=== PATIENT | female | born 1960 | race Caucasian/White ===

== ENCOUNTER → 2021-08-16 | Outpatient (CLI) | payer BC, OTHER ==
[~2021-08-16] MED LIST: ADRIAMYCIN; CELE200; CYTOXIN; DIPH50; GABA300; LORA.5 PO; MELA3; ONDA8 PO; OXYC5 PO; PROM25 PO; Valium5 MG PO; ZOLEDRONIC5 MG/100 M; [UNRECOGNIZED DRUG - OTHER]
== END | disposition home or self-care (01) ==
LOC: LAB 09:22 → PLD 09:22 → LAB SHORT 09:22
DX: D48.5 Neoplasm of uncertain behavior of skin (principal)
CPT/HCPCS: 88305

== ENCOUNTER → 2021-08-17 | Outpatient (CLI) | payer BC, OTHER ==
[2021-08-17 13:55] LABS: Source, Urine Clean Catch
[2021-08-17 15:01] LABS: Bacteria Few /hpf; Squamous Epithelial Cells Few /hpf (Few); White Blood Cells, Urine 0-2 /hpf (0-5)
[2021-08-18 11:23] LABS: Candida species (DNA Probe) Negative (NEGATIVE); G. vaginalis (DNA Probe) Negative (NEGATIVE); T. vaginalis (DNA Probe) Negative (NEGATIVE)
== END | disposition home or self-care (01) ==
LOC: LAB 11:42 → LAB SHORT 11:42
PROVIDERS: Family Medicine
DX: N95.0 Postmenopausal bleeding (principal)
CPT/HCPCS: 81015; 87480; 87510; 87660

== ENCOUNTER → 2021-09-13 | Outpatient (CLI) | payer BC, OTHER | END | disposition home or self-care (01) | LOC: LAB 17:09 → LAB SHORT 17:09 | DX: R31.9 Hematuria, unspecified (principal) | CPT/HCPCS: 88108 ==

== ENCOUNTER → 2021-10-12 | Outpatient (CLI) | payer BC ==
[2021-10-12 14:18] LABS: BASOPHILS ABSOLUTE AUTO 0.05 K/mm3 (0.00-0.23); BASOPHILS PERCENT AUTO 1 % (0-2); EOSINOPHILS ABSOLUTE AUTO 0.03 K/mm3 (0.00-0.68); EOSINOPHILS PERCENT AUTO 1 % (0-6); Hematocrit 36.6 % (33.0-51.0); Hemoglobin 12.4 g/dL (11.5-16.0); IMMATURE GRAN ABSOLUTE AUTO 0.02 K/mm3 (0.00-0.10); IMMATURE GRAN PERCENT AUTO 0 % (0-1); LYMPHOCYTES ABSOLUTE AUTO 0.84 K/mm3 (0.84-5.20); LYMPHOCYTES PERCENT AUTO 16 % (21-46); MONOCYTES ABSOLUTE AUTO 0.38 K/mm3 (0.16-1.47); MONOCYTES PERCENT AUTO 7 % (4-13); Mean Corpuscular HGB 30.5 pg (26.0-34.0); Mean Corpuscular HGB Conc 33.9 g/dL (31.5-36.5); Mean Corpuscular Volume 90 fL (80-100); Mean Platelet Volume 9.4 fL (9.1-12.4); NEUTROPHILS ABSOLUTE AUTO 3.83 K/mm3 (1.96-9.15); NEUTROPHILS PERCENT AUTO 74 % (41-73); Platelet Count 213 K/mm3 (150-400); RDW Coefficient Variation 12.7 % (11.7-14.2); RDW Standard Deviation 42.2 fL (35.1-46.3); Red Blood Cell Count 4.06 M/mm3 (3.80-5.20); White Blood Cell Count 5.15 K/mm3 (4.00-11.30)
[2021-10-12 15:17] LABS: Alanine Aminotransfer (ALT/SGP 22 U/L (12-78); Albumin, Blood 3.9 g/dL (3.4-5.0); Albumin/Globulin Ratio 1.3 (0.8-1.8); Alk Phos 48 U/L (50-136); Anion Gap 7 mmol/L (6-16); Aspartate Aminotrans (AST/SGOT 20 U/L (12-37); Bilirubin, Total 0.6 mg/dL (0.1-1.0); Blood Urea Nitrogen 23 mg/dL (8-24); CHOL/HDL RATIO 1.9; CO2, Blood 26 mmol/L (21-32); Calcium, Blood 9.3 mg/dL (8.5-10.1); Chloride, Blood 104 mmol/L (98-108); Cholesterol 183 mg/dL (50-200); Free Thyroxine 0.92 ng/dL (0.70-1.60); Globulin, Blood 3.1 g/dL (2.2-4.0); Glucose, Blood 92 mg/dL (70-99); HDL Cholesterol 97 mg/dL (>39); LDL/HDL RATIO 0.8; Low Density Lipoprotein Chol 77 mg/dL (0-110); Potassium, Blood 3.8 mmol/L (3.5-5.5); Sodium, Blood 137 mmol/L (136-145); Triglycerides 46 mg/dL (30-160); Very Low Density Lipoprot Chol 9 mg/dL (6-32)
[2021-10-12 15:20] LABS: Glomerular Filtration Rate 98 (60-); Triiodothyronine, Free 2.41 pg/mL (2.18-3.98)
== END | disposition home or self-care (01) ==
LOC: LAB SHORT 13:34 → LAB 13:34
PROVIDERS: Family Medicine
DX: Z00.00 Encounter for general adult medical examination without abnormal findings (principal); R79.89 Other specified abnormal findings of blood chemistry; R53.83 Other fatigue
CPT/HCPCS: 36415; 80053; 80061; 84439; 84443; 84481; 85025